=== PATIENT | male | born 1990 | race Native Hawaiian/Other Pacific Islander ===

== ENCOUNTER 2016-04-02 11:43 | Outpatient (CLI) | payer MEDICAID | END 2016-04-02 11:44 | disposition home or self-care (01) | DX: S43.004A Unspecified dislocation of right shoulder joint, initial encounter (principal); S43.491A Other sprain of right shoulder joint, initial encounter; M75.81 Other shoulder lesions, right shoulder; M19.011 Primary osteoarthritis, right shoulder ==

== ENCOUNTER 2016-09-06 10:18 | Day surgery (SDC) | payer OTHER, MEDICAID ==
[~2016-09-06 10:18] MED LIST: ceFAZolin 2 GM/50 ML 50 ML IV ONE
[2016-09-06] MEDS ORDERED: LACTATED RINGERS 1,000 ML IV ONE (10:44)
[2016-09-06] MEDS ORDERED: BUPIVACAINE 0.25%-EPI 1:200000 PF 30 ML VIAL SUBQ ONE ×2 (12:18→13:55)
[2016-09-06] MEDS ORDERED: LIDOCAINE-MPF 2% 5 ML VIAL IM ONE (12:22)
[2016-09-06] MEDS ORDERED: MIDAZOLAM 2 MG/2 ML VIAL IVP ONE (12:22)
[2016-09-06] MEDS ORDERED: ROCURONIUM 50 MG/5 ML VIAL IVP ONE (12:22)
[2016-09-06] MEDS ORDERED: NEOSTIGMINE 1 MG/1 ML 10 ML MDV IVP ONE (12:22)
[2016-09-06] MEDS ORDERED: ONDANSETRON 4 MG/2 ML VIAL IVP ONE (12:22)
[2016-09-06] MEDS ORDERED: DEXAMETHASONE 4 MG/ML VIAL IVP ONE (12:22)
[2016-09-06] MEDS ORDERED: PHENYLEPHRINE 50 MG/5 ML VIAL IV ONE (12:22)
[2016-09-06] MEDS ORDERED: HYDROmorphone 1 MG/ML SYRINGE IVP ONE (12:22)
[2016-09-06] MEDS ORDERED: ACETAMINOPHEN 1,000 MG/100 ML VIAL IV ONE (12:22)
[2016-09-06] MEDS ORDERED: SUCCINYLCHOLINE 200 MG/10 ML VIAL IVP ONE (12:22)
[2016-09-06] MEDS ORDERED: KETOROLAC 30 MG/ML VIAL IVP ONE (12:22)
[2016-09-06] MEDS ORDERED: PROPOFOL 200 MG/20 ML VIAL IVP ONE (12:22)
[2016-09-06] MEDS ORDERED: KETOROLAC 15 MG/ML VIAL ONE (14:54)
[2016-09-06] MEDS ORDERED: oxyCOD/ACETAMIN 5 MG/325 MG TABLET PO ONE (14:55)
[2016-09-06 15:47] VITALS: BP 137/90
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
== END 2016-09-06 10:19 | disposition home or self-care (01) ==
LOC: SDS 10:18
PROVIDERS: ATTEND Orthopaedic Surgery
PROC: 0RCJ4ZZ Extirpation of Matter from Right Shoulder Joint, Percutaneous Endoscopic Approach (ICD-10-PCS; principal; 2016-09-06 11:15)
PROC: 0RQJ0ZZ Repair Right Shoulder Joint, Open Approach (ICD-10-PCS; 2016-09-06 11:15)
DX: M25.311 Other instability, right shoulder (principal); M19.011 Primary osteoarthritis, right shoulder; M24.011 Loose body in right shoulder; F17.210 Nicotine dependence, cigarettes, uncomplicated
CPT/HCPCS: 23466; 29819; A9270; C1713; J0131; J0690; J1170; J7120

== ENCOUNTER 2016-10-06 22:06 | Emergency (ER) | payer MEDICAID ==
[2016-10-06 22:23] VITALS: BP 135/84
[2016-10-06] MEDS ORDERED: IBUPROFEN 600 MG TABLET PO STA (22:38)
--- NOTE | 2016-10-06 22:40 | ED Physician Documentation ---
PD HPI HEENT - Stated complaint Stated Complaint: TOOTH PX - Chief complaint Chief Complaint: Heent - History obtained from History obtained from: Patient - History of Present Illness Timing - onset: How many weeks ago (1) Timing - details: Gradual onset, Still present Location: Tooth Improves: Nothing Worsens: Temperatures Associated symptoms: No: Fever, Congestion, Rhinorrhea, Unable to swallow, Swollen nodes Similar symptoms before: Follow up Recently seen: Not recently seen - Additional information Additional information: Patient is a 25 year old male with no significant past medical history who is presenting to the emergency department for tooth pain. patient states that he has an impacted molar and it was hurting so he wanted to make sure that it wasn' t infected. Review of Systems Constitutional: denies: Fever, Chills Eyes: denies: Decreased vision Ears: denies: Ear pain, Drainage/discharge Nose: denies: Rhinorrhea / runny nose, Congestion, Epistaxis Throat: reports: Dental pain / toothache. denies: Sore throat Cardiac: denies: Chest pain / pressure, Palpitations Respiratory: denies: Cough GI: denies: Nausea, Vomiting Musculoskeletal: reports: Extremity pain, Extremity swelling Neurologic: denies: Generalized weakness, Focal weakness, Headache, Head injury Immunocompromised: denies: Immunocompromised PD PAST MEDICAL HISTORY - Past Medical History Past Medical History: Yes Cardiovascular: None Respiratory: None Neuro: None Endocrine/Autoimmune: None GI: None : Kidney stones HEENT: None Psych: None Musculoskeletal: None Derm: None - Past Surgical History Past Surgical History: Yes Ortho: Shoulder arthroplasty - Present Medications Home Medications: Ambulatory Orders Medication Instructions Recorded Confirmed Chlorhexidine Gluconate 15 ml MM TID #473 ml 10/06/16 oxyCODONE [Roxicodone] 1 tab PO BID 10/06/16 10/06/16 - Allergies Allergies/Adverse Reactions: Allergies Allergy/AdvReac Type Severity Reaction Status Date / Time No Known Drug Allergies Allergy Verified 10/06/16 22:23 - Social History Does the pt smoke?: Yes Smoking Status: Current every day smoker Does the pt drink ETOH?: No Does the pt have substance abuse?: No - Immunizations Immunizations are current?: Yes - POLST Patient has POLST: No PD ED PE NORMAL - Vitals Vital signs reviewed: Yes - General General: Alert and oriented X 3, No acute distress, Well developed/nourished - HEENT HEENT: Atraumatic, PERRL - Neck Neck: Supple, no meningeal sign, No adenopathy - Cardiac Cardiac: RRR, No murmur - Respiratory Respiratory: No respiratory distress - Derm Derm: Normal color, Warm and dry, No rash - Extremities Extremities: No deformity, No tenderness to palpate - Neuro Neuro: Alert and oriented X 3, No motor deficit, No sensory deficit - Psych Psych: Normal mood, Normal affect PD ED PE EXPANDED - HEENT HEENT: Moist mucous membranes, Dental decay (multiple dental caries, no drainable abscess or fluid collection) Results - Vitals Vitals: Vital Signs - 24 hr 10/06/16 22:21 Temperature 36.9 C Heart Rate 91 Respiratory 18 Rate Blood Pressure 135/84 H O2 Saturation 98 Oxygen O2 Source Room air PD MEDICAL DECISION MAKING - ED course Complexity details: reviewed old records, re-evaluated patient, considered differential, d/w patient, d/w family ED course: Patient was seen and examined at bedside. Vital signs were within normal limits. there was no drainable abscess or fluid collection. Patient was treated with motrin for pain and prescriptions were written for antibiotic mouth wash. patient required no further work up and was stable for discharge with outpatient follow up. Departure - Departure Disposition: 01 Home, Self Care Clinical Impression: Pain due to dental caries Condition: Good Instructions: ED Tooth Pain Follow-Up: primary,dentist [Other] - Within 1 week Prescriptions: Chlorhexidine Gluconate 15 ml MM TID #473 ml Comments: there is no abscess or fluid collection, so no indication for oral antibiotics. We will have you start an antibiotic mouth rinse that you should use three times a day. You can take motrin or tylenol as needed for pain. Ultimately the only way to solve the problem is to follow up with your dentist.
[2016-10-06] MEDS ORDERED: IBUPROFEN 600 MG TABLET PO ONE (22:44)
== END 2016-10-06 22:57 | disposition home or self-care (01) ==
LOC: ED 22:06
DX: K08.89 Other specified disorders of teeth and supporting structures (principal); K02.9 Dental caries, unspecified; F17.200 Nicotine dependence, unspecified, uncomplicated
CPT/HCPCS: 99283; A9270

== ENCOUNTER 2016-11-24 11:09 | Emergency (ER) | payer MEDICAID ==
--- NOTE | 2016-11-24 13:07 | ED Physician Documentation ---
History of Present Illness - Stated complaint Stated Complaint: DIZZY - Chief complaint Chief Complaint: General - History obtained from History obtained from: Patient - History of Present Illness Timing: Yesterday (This is a previously healthy 25-year-old gentleman with resolving cough and cold symptoms for the last week and half, since yesterday he does like he is spinning especially when he turns his head rapidly. When he is looking straight it goes away. There is some mild left occipital headache with that, no fevers or double vision. He has never had this before.) Review of Systems Constitutional: denies: Fever, Chills Eyes: denies: Loss of vision, Decreased vision, Photophobia Ears: reports: Tinnitus/ringing. denies: Loss of hearing, Ear pain, Drainage/ discharge Nose: denies: Rhinorrhea / runny nose, Congestion Throat: denies: Dental pain / toothache, Sore throat Cardiac: denies: Chest pain / pressure, Palpitations PD PAST MEDICAL HISTORY - Past Medical History Cardiovascular: None Respiratory: None Neuro: None Endocrine/Autoimmune: None GI: None : Kidney stones HEENT: None Psych: None Musculoskeletal: None Derm: None - Past Surgical History Past Surgical History: Yes Ortho: Shoulder arthroplasty - Present Medications Home Medications: Ambulatory Orders Medication Instructions Recorded Confirmed Meclizine HCl 1 tab PO Q6H PRN #15 tab.chew 11/24/16 - Allergies Allergies/Adverse Reactions: Allergies Allergy/AdvReac Type Severity Reaction Status Date / Time No Known Drug Allergies Allergy Verified 11/24/16 12:51 - Social History Does the pt smoke?: Yes Smoking Status: Current every day smoker Does the pt drink ETOH?: No Does the pt have substance abuse?: No - Immunizations Immunizations are current?: Yes - POLST Patient has POLST: No PD ED PE NORMAL - Vitals Vital signs reviewed: Yes - General General: Alert and oriented X 3, No acute distress - HEENT HEENT: PERRL, EOMI, Ears normal, Pharynx benign - Neck Neck: Supple, no meningeal sign, No bony TTP - Cardiac Cardiac: RRR, No murmur - Neuro Neuro: Alert and oriented X 3, 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 Departure - Departure Disposition: 01 Home, Self Care Clinical Impression: Peripheral vertigo Qualifiers: Laterality: left Qualified Code(s): H81.392 - Other peripheral vertigo, left ear Condition: Good Record reviewed to determine appropriate education?: Yes Instructions: Vertigo Paroxysmal Positional Prescriptions: Meclizine HCl 1 tab PO Q6H PRN #15 tab.chew PRN Reason: Vertigo Comments: The problem should go away on its own, if it does not I would recommend following up with an ear nose and throat physician, The closest is in [place], call [phone] to schedule an appointment Your blood pressure was elevated today on check into the emergency department. This does not mean that you have hypertension, it is a common phenomenon to come to the emergency department and have elevated blood pressure. I recommend that she see your primary care physician within the week to have it rechecked when you are feeling better.
[2016-11-24 13:15] VITALS: BP 130/88
== END 2016-11-24 13:14 | disposition home or self-care (01) ==
LOC: ED 11:09
DX: H81.392 Other peripheral vertigo, left ear (principal); R03.0 Elevated blood-pressure reading, without diagnosis of hypertension; F17.200 Nicotine dependence, unspecified, uncomplicated
CPT/HCPCS: 99283

== ENCOUNTER 2020-10-12 20:49 | Emergency (ER) | payer MEDICAID ==
--- NOTE | 2020-10-12 22:57 | ED Physician Documentation ---
History of Present Illness - Stated complaint Stated Complaint: LUMP ON HEAD - Chief complaint Chief Complaint: General - History obtained from History obtained from: Patient - Additonal information Additional information: 29-year-old man presents with swelling to mid forehead For the past month, with pain over the past 2 to 3 days after he keeps fingering it. Denies fevers, redness, injury, headache. Review of Systems Constitutional: denies: Fever, Chills Skin: reports: Other (bump) Neurologic: denies: Headache PD PAST MEDICAL HISTORY - Past Medical History Past Medical History: Yes Cardiovascular: None Respiratory: None Endocrine/Autoimmune: None GI: None : Kidney stones HEENT: None Psych: None Musculoskeletal: None Derm: None - Past Surgical History Past Surgical History: Yes Ortho: Shoulder arthroplasty - Present Medications Home Medications: Ambulatory Orders Medication Instructions Recorded Confirmed Amoxicillin 500 mg PO DAILY 10/12/20 10/12/20 - Allergies Allergies/Adverse Reactions: Allergies Allergy/AdvReac Type Severity Reaction Status Date / Time No Known Drug Allergies Allergy Verified 10/12/20 20:52 - Social History Does the pt smoke?: Yes Smoking Status: Current every day smoker Does the pt drink ETOH?: No Does the pt have substance abuse?: No - Immunizations Immunizations are current?: Yes - POLST Patient has POLST: No PD ED PE NORMAL - Vitals Vital signs reviewed: Yes - General General: Alert and oriented X 3, No acute distress, Well developed/nourished - HEENT HEENT: Atraumatic, PERRL, EOMI, Other (2cm mobile soft spherical mass that is nontender located in midforehead) - Neck Neck: Supple, no meningeal sign - Derm Derm: Normal color - Extremities Extremities: No deformity - Neuro Neuro: Alert and oriented X 3 - Psych Psych: Normal mood, Normal affect Results - Vitals Vitals: Vital Signs - 24 hr 10/12/20 20:52 Temperature 36.6 C Heart Rate 120 H Respiratory 16 Rate Blood Pressure 160/90 H O2 Saturation 98 Oxygen O2 Source Room air PD MEDICAL DECISION MAKING - ED course ED course: 29-year-old man presents with lipoma to mid forehead. Advised him to follow-up with dermatology or surgery. Return precautions given. Departure - Departure Disposition: 01 Home, Self Care Clinical Impression: Lipoma Condition: Good Instructions: Lipoma Follow-Up: Collette Pfeiffer MD [Provider Admit Priv/Credential] - Sourav Powell MD [Provider Admit Priv/Credential] - [facility] [Provider Group] Comments: You were seen in the emergency department for a lipoma. You can follow-up with [facility] in [place] to have it removed (probably the best option) or you can go to see one of our general surgeons. It is not cancerous. It does not appear to be infected, but return if it becomes red or if you have fevers. Please also return if you have any other new or worsening symptoms or other concerns.
[2020-10-12 23:05] VITALS: BP 142/97
== END 2020-10-12 23:01 | disposition home or self-care (01) ==
LOC: ED 20:49
DX: D17.0 Benign lipomatous neoplasm of skin and subcutaneous tissue of head, face and neck (principal); F17.200 Nicotine dependence, unspecified, uncomplicated
CPT/HCPCS: 99282

== ENCOUNTER 2021-08-05 08:24 | Emergency (ER) | payer MEDICAID ==
[2021-08-05 08:32] VITALS: BP 141/80
[2021-08-05] MEDS ORDERED: BACITRACIN ZINC OINT 1 PACKET TOP STA (08:49)
[2021-08-05] MEDS ORDERED: cephALEXin 250 MG CAPSULE PO STA (08:49)
--- NOTE | 2021-08-05 08:53 | ED Physician Documentation ---
PD HPI SKIN - Stated complaint Stated Complaint: LUMP ON RT CHEEK - Chief complaint Chief Complaint: Wound - Additional information Additional information: Patient is 30-year-old male with past medical significant for recently identified lipoma on his scalp presenting to the emergency department with swelling and pain associated with his right cheek. Endorses for swelling, purulent malodorous discharge from the area x1-2 days. Denies previous abscesses or soft tissue infections. Denies IVDA. Denies any fever, chills, chest pain, shortness of breath, abdominal pain, nausea, vomiting, diarrhea, constipation. Review of Systems Ten Systems: 10 systems reviewed and negative Constitutional: denies: Fever Cardiac: denies: Chest pain / pressure GI: denies: Abdominal Pain PD PAST MEDICAL HISTORY - Past Medical History Past Medical History: Yes Cardiovascular: None Respiratory: None Endocrine/Autoimmune: None GI: None : Kidney stones HEENT: None Psych: None Musculoskeletal: None Derm: None - Past Surgical History Past Surgical History: Yes Ortho: Shoulder arthroplasty - Present Medications Home Medications: Ambulatory Orders Medication Instructions Recorded Confirmed Bacitracin Zinc Oint 1 applic TOP BID #1 gm 08/05/21 cephALEXin [Keflex] 500 mg PO Q6H #20 cap 08/05/21 - Allergies Allergies/Adverse Reactions: Allergies Allergy/AdvReac Type Severity Reaction Status Date / Time No Known Drug Allergies Allergy Verified 08/05/21 08:32 - Social History Does the pt smoke?: Yes Smoking Status: Current every day smoker Does the pt drink ETOH?: No Does the pt have substance abuse?: No - Immunizations Immunizations are current?: Yes - POLST Patient has POLST: No PD ED PE NORMAL - Vitals Vital signs reviewed: Yes - General General: Alert and oriented X 3, No acute distress - HEENT HEENT: Other (1 cm x 1 cm area of erythema on the right cheek. Mjqfi-gl-fiin ultrasonography demonstrates a very small, 1 x 2 mm fluid collection that is subcutaneous. There appears to be active drainage here in the emergency department.) Results - Vitals Vitals: Vital Signs - 24 hr 08/05/21 08:31 Temperature 35.7 C L Heart Rate 96 Respiratory 16 Rate Blood Pressure 141/80 H O2 Saturation 100 Oxygen O2 Source Room air PD MEDICAL DECISION MAKING - ED course Complexity details: d/w patient ED course: Patient is 30-year-old male presenting to the emergency department with a small area of erythema on his right cheek with active purulent drainage. This is consistent with facial cellulitis. [id number] ultrasonography demonstrated a very small fluid collection less than 2 mm in maximal dimension. Given the size of the fluid collection I do not believe it is amenable to either needle aspiration or incision and drainage at this time. Will initiate course of oral and topical antibiotics for treatment. Additionally patient requested contact information for local area surgical services or dermatology services with whom he can follow for his lipoma. These were provided. Otherwise clear return precautions and follow-up instructions were given prior to discharge. Departure - Departure Disposition: Home, Self Care Clinical Impression: Facial cellulitis Instructions: ED Infec Skin Cellulitis Follow-Up: Chevy Fofana MD [Provider Admit Priv/Credential] - Prescriptions: Bacitracin Zinc Oint 1 applic TOP BID #1 gm cephALEXin [Keflex] 500 mg PO Q6H #20 cap Comments: Thank you for allowing us to care for you today [facility]. Your prescriptions were sent to [facility] Today in the emergency department you are diagnosed with facial cellulitis. This is a soft tissue infection and I would like you to begin a course of oral and topical antibiotics. The ultrasound performed in the emergency department Today did show a small fluid collection however it was less than 2 mm in maximal dimension and fluid collections of the size are not amenable to drainage. However do be aware that if your infection worsens or if this fluid collection becomes larger over the next few days it will be important for you to either follow-up with your primary care doctor or return to the emergency department for reevaluation and possible drainage. For management of your lipoma I recommend follow-up with either [facility] dermatology or you can follow-up directly with [facility] general surgical clinic whose contact information is attached in this discharge packet.
== END 2021-08-05 09:06 | disposition home or self-care (01) ==
LOC: ED 08:24
DX: L03.211 Cellulitis of face (principal); F17.200 Nicotine dependence, unspecified, uncomplicated
CPT/HCPCS: 99282; 99283; A9270

== ENCOUNTER 2021-12-09 11:00 | Day surgery (SDC) | payer MEDICAID ==
[2021-12-09] MEDS ORDERED: LACTATED RINGERS 1,000 ML IV ONE ×2 (11:26→13:37)
--- NOTE | 2021-12-09 11:59 | HISTORY & PHYSICAL EXAMINATION ---
Chief Complaint - Chief Complaint Chief Complaint: growing and now uncomfortable forehead lump History of Present Illness - History Obtained From Records Reviewed: yes History obtained from: pt Exam Limitations: none - History of Present Illness HPI Comment/Other: symptomatic forehead lipoma History - Past Medical History Cardiovascular: reports: None Respiratory: reports: None Endocrine/Autoimmune: reports: None GI: reports: None : reports: Kidney stones HEENT: reports: None Psych: reports: None Musculoskeletal: reports: None Derm: reports: None MRSA Hx?: No - Past Surgical History Ortho: reports: Shoulder arthroplasty - POLST Patient has POLST: No Meds/Allgy - Home Medications Home Medications: Ambulatory Orders Medication Instructions Recorded Confirmed No Known Home Medications 12/08/21 12/08/21 - Allergies Allergies/Adverse Reactions: Allergies Allergy/AdvReac Type Severity Reaction Status Date / Time No Known Drug Allergies Allergy Verified 08/05/21 08:32 Review of Systems - Other Findings Other Findings: 10 pt ros as above otherwise unremarkable Exam - Vital Signs Vital Signs: Vital Signs x48h Temp Pulse Resp BP Pulse Ox 12/09/21 11:05 37 C 90 18 125/80 98 - Physical Exam General Appearance: positive: No acute distress, Alert Eyes Bilateral: positive: PERRL, EOMI ENT: positive: No signs of dehydration Neck: positive: No JVD, Trachea midline Respiratory: positive: No respiratory distress, Breath sounds nml Cardiovascular: positive: Regular rate & rhythm Abdomen: positive: No distention Skin: positive: Other (3 cm mid forehead lipoma) Neurologic/Psychiatric: positive: Oriented x3 Conclusion/Plan - Problem List (1) Lipoma of forehead Conclusion/Plan: plan excision. parq held and consent obtained
--- NOTE | 2021-12-09 12:03 | ANESTHESIA ---
Pre-Anesthesia VS, & Labs - Diagnosis lipoma forehead - Procedure excision of lipoma head Vital Signs: Temp Pulse Resp BP Pulse Ox O2 Flow Rate 37 C 90 18 125/80 98 12/09/21 11:05 12/09/21 11:05 12/09/21 11:05 12/09/21 11:05 12/09/21 11:05 Height: 5 ft 9 in Weight (kg): 121.9 kg Body Mass Index: 39.6 BMI Classification: Obese - NPO >8 hours Home Medications and Allergies Home Medications: Ambulatory Orders No Known Home Medications 12/08/21 No Known Home Medications 12/08/21 Allergies/Adverse Reactions: Allergies Allergy/AdvReac Type Severity Reaction Status Date / Time No Known Drug Allergies Allergy Verified 08/05/21 08:32 Anes History & Medical History - Anesthetic History Anesthesia Complications: reports: No previous complications - Medical History Cardiovascular: reports: None Pulmonary: reports: None Gastrointestinal: reports: None Urinary: reports: Kidney stones Neuro: reports: None Musculoskeletal: reports: None Endocrine/Autoimmune: reports: None Blood Disorders: reports: None Skin: reports: None Smoking Status: Current every day smoker (1/2 pack per day) Psychosocial: reports: No issues indicated History of Cancer?: No - Surgical History Orthopedic: reports: Shoulder arthroplasty Exam General: Alert, Oriented x3, Cooperative, No acute distress Dental: WNL Mouth Openin Fingerbreadth Neck Mobility: Normal Mallampati classification: II Thyromental Distance: 4-6 cm Mental/Cognitive Status: Alert/Oriented X3, Normal for patient Plan Anesthesia Type: General Consent for Procedure(s) Verified and Reviewed: Yes Code Status: Attempt Resuscitation ASA classification: 2-Mild systemic disease Is this case an emergency?: No
[2021-12-09] MEDS ORDERED: ATROPINE ABBOJECT 1 MG/10 ML SYRINGE IVP PRN (12:06)
[2021-12-09] MEDS ORDERED: fentaNYL 100 MCG/2 ML VIAL IVP PRN (12:06)
[2021-12-09] MEDS ORDERED: MORPHINE 2 MG/ML CARPUJECT IVP PRN (12:06)
[2021-12-09] MEDS ORDERED: ONDANSETRON 4 MG/2 ML VIAL IVP PRN (12:06)
[2021-12-09] MEDS ORDERED: HYDROmorphone 0.5 MG/0.5 ML SYRINGE IVP PRN (12:06)
[2021-12-09] MEDS ORDERED: NALOXONE 0.4 MG/ML VIAL IVP PRN (12:06)
[2021-12-09] MEDS ORDERED: PROPOFOL 200 MG/20 ML VIAL IVP ONE (12:24)
[2021-12-09] MEDS ORDERED: MIDAZOLAM 2 MG/2 ML VIAL ONE ×2 (12:25→13:03)
[2021-12-09] MEDS ORDERED: LIDOCAINE MPF 2%-EPI 1:200000 20 ML VIAL ONE (12:38)
[2021-12-09] MEDS ORDERED: BUPIVACAINE 0.25% PF 10 ML VIAL ONE (12:38)
[2021-12-09] MEDS ORDERED: LACTATED RINGERS 1,000 ML IV SCH (13:00)
[2021-12-09] MEDS ORDERED: ONDANSETRON 4 MG/2 ML VIAL ONE (13:09)
[2021-12-09] MEDS ORDERED: DEXAMETHASONE 4 MG/ML VIAL ONE (13:09)
[2021-12-09] MEDS ORDERED: LIDOCAINE MPF 2%-EPI 1:200000 20 ML VIAL SUBQ ONE ×2 (13:13)
[2021-12-09] MEDS ORDERED: BUPIVACAINE 0.25% PF 10 ML VIAL SUBQ ONE ×2 (13:14)
[2021-12-09] MEDS ORDERED: HYDROmorphone 1 MG/ML CARPUJECT ONE (13:18)
[2021-12-09] MEDS ORDERED: HYDROcod/ACETAM 5/325 MG TABLET PO PRN (13:33)
--- NOTE | 2021-12-09 13:53 | ANESTHESIA POST OP EVALUATION ---
Anesthesia Post Eval - Post Anesthesia Eval Vitals: Last Vital Signs Temp 36.4 C L 12/09/21 13:48 Pulse 89 12/09/21 13:48 Resp 18 12/09/21 13:48 BP 145/91 H 12/09/21 13:48 Pulse Ox 99 12/09/21 13:48 O2 Flow Rate CV Function Including HR & BP: Stable Pain Control: Satisfactory Nausea & Vomiting: Negative Mental Status: Baseline Respiratory Status: Airway Patent Hydration Status: Satisfactory Anesthesia Complications: None
--- NOTE | 2021-12-09 13:54 | OPERATIVE REPORT ---
Operative Report - General Procedure Date: 12/09/21 Planned Procedure: excision 3 cm forehead lipoma Pre-Op Diagnosis: forehead lipoma 3 cm Procedure Performed: excision forehead lipoma, subcutaneous 3 cm intermediate repair Post Op Diagnosis: same - Procedure Note Primary Surgeon: noel roblero Anesthesia Technique: General LMA, Local Pathology: benign not sent Estimated Blood Loss (mL): 2 Drain/Tube Type: Other (none) Indications: growing and symptomatic mass Findings: as above Complications: none - Other Other Information/Narrative: The patient was properly identified brought to the operating room and placed in supine position. Laryngeal mask anesthesia was induced. He was placed in modified Fowlers position. He was prepped and draped in a sterile fashion. Antibiotics were not given. Local anesthetic was given. A vertical 3 cm incision was made in the direction of Rafael's lines. The lipoma was removed in its entirety with gentle retraction and cutting current cautery. Hemostasis was assured. Intermediate repair was performed. Buried interrupted subdermal 4-0 Vicryl sutures were placed. Epidermis was closed with a running 5-0 Prolene. Steri-Strips were placed. He tolerated the procedure very well.
[2021-12-09 14:28] VITALS: BP 136/88
== END 2021-12-09 11:01 | disposition home or self-care (01) ==
LOC: SDS 11:00
PROVIDERS: ATTEND Surgery
DX: D17.0 Benign lipomatous neoplasm of skin and subcutaneous tissue of head, face and neck (principal); E66.9 Obesity, unspecified; F17.200 Nicotine dependence, unspecified, uncomplicated; Z68.39 Body mass index [BMI] 39.0-39.9, adult
CPT/HCPCS: 21012; J1170; J7120

== ENCOUNTER 2022-03-24 11:41 | Emergency (ER) | payer MEDICAID ==
[2022-03-24 12:07] VITALS: BP 139/81
--- OUTSIDE RECORDS SUMMARY | 2022-03-24 12:35 | EXTERNAL MEDICAL SUMMARY RPT | Continuity of Care Document ---
:1990 Author Organization [place] Address [address] [place] [address] Phone Care Team Providers Name Role Phone Fly Pamella Degroot Unavailable Unavailable Allergies No information. Encounters No information. Functional Status No information. Immunizations No information. Medications No information. Problems date description facility 2021-12-29 00:00 [facility] 2021-12-29 00:00 [facility] Last 2022-01-06 00:00 Kid[facility] stone [facility] 2022-01-06 00:00 [facility] Procedures No information. Results/Labs No information. Social History No information. Vital Signs No information.
--- NOTE | 2022-03-24 12:49 | ED Physician Documentation ---
PD HPI URI - Stated complaint Stated Complaint: COUGHING UP BLOOD/THROAT PX - Chief complaint Chief Complaint: Heent - History obtained from History obtained from: Patient - Additional information Additional information: Since yesterday has had a severe sore throat associate with coughing and he did note some mild hemoptysis yesterday, sputum mixed with blood. That made him worried about cancer. He recently quit smoking. He is not short of breath. No fevers. Review of Systems Constitutional: denies: Fever, Chills Nose: denies: Rhinorrhea / runny nose Throat: reports: Sore throat Respiratory: reports: Cough. denies: Dyspnea PD PAST MEDICAL HISTORY - Past Medical History Cardiovascular: None Respiratory: None Neuro: None Endocrine/Autoimmune: None GI: None : Kidney stones HEENT: None Psych: None Musculoskeletal: None Derm: None - Past Surgical History Past Surgical History: Yes Ortho: Shoulder arthroplasty - Present Medications Home Medications: Ambulatory Orders Medication Instructions Recorded Confirmed HYDROcod/ACETAM 5/325 [Flint 5/325] 1 each PO Q6H PRN #10 tablet 12/09/21 Penicillin V Potassium 500 mg PO Q6HR #40 tablet 03/24/22 - Allergies Allergies/Adverse Reactions: Allergies Allergy/AdvReac Type Severity Reaction Status Date / Time No Known Drug Allergies Allergy Verified 03/24/22 12:07 - Social History Does the pt smoke?: Yes Smoking Status: Current every day smoker (1/2 pack per day) Does the pt drink ETOH?: No Does the pt have substance abuse?: No - Immunizations Immunizations are current?: Yes - POLST Patient has POLST: No PD ED PE NORMAL - Vitals Vital signs reviewed: Yes - General General: Alert and oriented X 3, No acute distress - HEENT HEENT: Other (Exudative tonsillitis) - Neck Neck: Supple, no meningeal sign, No bony TTP - Cardiac Cardiac: RRR, No murmur - Respiratory Respiratory: No respiratory distress, Clear bilaterally - Abdomen Abdomen: Non tender - Back Back: No CVA TTP, No spinal TTP - Derm Derm: Normal color, Warm and dry - Extremities Extremities: No edema, No calf tenderness / cord Results - Vitals Vitals: Vital Signs - 24 hr 03/24/22 12:04 Temperature 36.7 C Heart Rate 107 H Respiratory 16 Rate Blood Pressure 139/81 H O2 Saturation 97 Oxygen O2 Source Room air PD Medical Decision Making - ED course ED course: PE considered but given that his prominent complaint is sore throat and he has exudative tonsillitis I suspect the hemoptysis is not related to thromboembolic disease. Otherwise it does look like he simply has tonsillitis and is treated with penicillin. Departure - Departure Disposition: Home, Self Care Clinical Impression: Hemoptysis URI (upper respiratory infection) Qualifiers: URI type: unspecified viral URI Qualified Code(s): J06.9 - Acute upper respiratory infection, unspecified Condition: Good Record reviewed to determine appropriate education?: Yes Instructions: ED Tonsillitis Prescriptions: Penicillin V Potassium 500 mg PO Q6HR #40 tablet Comments: Chest x-ray looking normal, no evidence of cancer. Your throat however looks like you have tonsillitis and we are prescribing some penicillin for that. Looking for new or worsening symptoms. Follow-up with your doctor next week if not better. You can take ibuprofen as needed for pain.
--- NOTE | 2022-03-24 13:51 | XRAY Report ---
PROCEDURE: Chest 2 View X-Ray INDICATIONS: cough TECHNIQUE: 2 views of the chest were acquired. COMPARISON: 12/01/2013 FINDINGS: Surgical changes and devices: None. Lungs and pleura: No pleural effusions or pneumothorax. Lungs are clear. Mediastinum: Mediastinal contours are normal. Heart size is normal. Bones and chest wall: No suspicious bony abnormalities. Soft tissues appear unremarkable. IMPRESSION: No acute cardiopulmonary disease. Reviewed by: Isela Gandara MD on 03/24/2022 1:49 PM PST Approved by: Isela Gandara MD on 03/24/2022 1:49 PM PST Station ID: [id number]
== END 2022-03-24 12:55 | disposition home or self-care (01) ==
LOC: ED 11:41
DX: J06.9 Acute upper respiratory infection, unspecified (principal); F17.210 Nicotine dependence, cigarettes, uncomplicated
CPT/HCPCS: 99283

== ENCOUNTER 2022-05-07 15:16 | Outpatient (CLI) | payer MEDICAID ==
[2022-05-07 15:40] LABS: BASOPHILS # (AUTO) 0.1 10^3/uL (0.0-0.1); BASOPHILS % (AUTO) 0.6 %; EOSINOPHILS # (AUTO) 0.3 10^3/uL (0.0-0.7); EOSINOPHILS % (AUTO) 2.9 %; HGB - HEMOGLOBIN 14.5 g/dL (14.0-18.0); LYMPHOCYTES # (AUTO) 2.5 10^3/uL (1.5-3.5); LYMPHOCYTES % (AUTO) 27.7 %; MEAN CORPUSCULAR HEMOGLOBIN 28.6 pg (27.0-31.0); MEAN CORPUSCULAR VOLUME 86.8 fL (80.0-94.0); MEAN PLATELET VOLUME 8.7 fL (7.4-11.4); MONOCYTES # (AUTO) 0.7 10^3/uL (0.0-1.0); MONOCYTES % (AUTO) 7.3 %; NEUTROPHILS # (AUTO) 5.4 10^3/uL (1.5-6.6); NEUTROPHILS % (AUTO) 61.3 %; PLT - PLATELET COUNT 313 10^3/uL (130-450); RED BLOOD COUNT 5.07 10^6/uL (4.70-6.10); RED CELL DISTRIBUTION WIDTH 13.2 % (12.0-15.0); WHITE BLOOD COUNT 8.9 x10^3/uL (4.8-10.8)
[2022-05-07 16:06] LABS: ALBUMIN 4.2 g/dL (3.2-5.5); ALBUMIN/GLOBULIN RATIO 1.1 (1.0-2.2); ALKALINE PHOSPHATASE 127 IU/L (42-121); ALT ALANINE AMINOTRANSFERASE 45 IU/L (10-60); AST ASPARTATE AMINOTRANSFERASE 34 IU/L (10-42); BILIRUBIN,TOTAL 0.7 mg/dL (0.2-1.0); BUN - BLOOD UREA NITROGEN 16 mg/dL (6-20); CALCIUM 9.2 mg/dL (8.5-10.3); CARBON DIOXIDE - CO2 21 mmol/L (21-32); CHLORIDE 103 mmol/L (101-111); CHOLESTEROL 119 mg/dL; CREATININE 0.9 mg/dL (0.6-1.2); GFR - MDRD 98 (>89); GLUCOSE 128 mg/dL (70-100); HDL CHOLESTEROL 40 mg/dL; LDL CHOLESTEROL,CALCULATED 45 mg/dL; LDL/HDL RATIO 1.1 (<3.6); POTASSIUM 3.4 mmol/L (3.5-5.0); SODIUM 137 mmol/L (135-145); TOTAL PROTEIN 7.9 g/dL (6.7-8.2); TRIGLYCERIDES 172 mg/dL; VLDL CHOLESTEROL 34 mg/dL
[2022-05-07 16:13] LABS: THYROID STIMULATING HORMONE 0.87 uIU/mL (0.34-5.60)
[2022-05-07 21:42] LABS: ESTIMATED AVERAGE GLUCOSE 111 mg/dL (70-100); HEMOGLOBIN A1c% 5.5 % (4.27-6.07)
[2022-05-10 00:07] LABS: HIV SCREEN 4TH GENERATION Non Reactive (Non Reactive)
== END 2022-05-07 15:17 | disposition home or self-care (01) ==
LOC: LAB 15:16
PROVIDERS: ATTEND Nurse Practitioner Acute Care
DX: N52.9 Male erectile dysfunction, unspecified (principal); Z13.228 Encounter for screening for other metabolic disorders; Z13.220 Encounter for screening for lipoid disorders; Z13.29 Encounter for screening for other suspected endocrine disorder; Z11.4 Encounter for screening for human immunodeficiency virus [HIV]; Z11.59 Encounter for screening for other viral diseases
CPT/HCPCS: 36415; 80050; 80061; 83036; 83721; 84403; 87389; 87522

== ENCOUNTER 2022-05-10 09:01 | Outpatient (CLI) | payer MEDICAID ==
[2022-05-10 10:11] LABS: FOLLICLE STIMULATING HORMONE 2.88 mIU/mL
[2022-05-10 10:12] LABS: LUTEINIZING HORMONE 2.76 mIU/mL
== END 2022-05-10 09:02 | disposition home or self-care (01) ==
LOC: LAB 09:01
PROVIDERS: ATTEND Nurse Practitioner Acute Care
DX: E29.1 Testicular hypofunction (principal); N52.9 Male erectile dysfunction, unspecified
CPT/HCPCS: 36415; 83001; 83002; 84403

== ENCOUNTER 2022-11-16 22:12 | Emergency (ER) | payer MEDICAID ==
[2022-11-16 23:23] VITALS: O2SAT 100
--- NOTE | 2022-11-16 23:35 | XRAY Report ---
PROCEDURE: Shoulder 3 View RT INDICATIONS: PINCHED SENSATION/TENDERNESS R SHOULDER POST WORK TECHNIQUE: 4 views of the shoulder were acquired. COMPARISON: None. FINDINGS: Bones: No fractures or dislocations. There is slight inferior sloping of the acromion laterally. No suspicious bony lesions. Visualized ribs appear intact. Soft tissues: No suspicious soft tissue calcifications. The visualized lungs are within normal limi ts. IMPRESSION: 1. No acute bony abnormality. 2. Slight inferior sloping of the acromion laterally may be associated with rotator cuff tearing. Fur ther evaluation may be obtained with MRI. Reviewed by: Ori Anne MD on 11/16/2022 11:34 PM PDT Approved by: Ori Anne MD on 11/16/2022 11:34 PM PDT Station ID: [id number]
--- NOTE | 2022-11-17 00:08 | ED Physician Documentation ---
History of Present Illness - Stated complaint Stated Complaint: R SHOULDER PX - Chief complaint Chief Complaint: Ext Problem - History obtained from History obtained from: Patient - Additonal information Additional information: 31yM presents to the ED with R shoulder pain after a heavy workout 4 days ago. patient has been continuing to work out but avoiding "arms day". denies numbness/weakness. normal ROM. he did have prior rotator cuff surgery on that shoulder. PD PAST MEDICAL HISTORY - Past Medical History Cardiovascular: None Respiratory: None Neuro: None Endocrine/Autoimmune: None GI: None : Kidney stones HEENT: None Psych: None Musculoskeletal: None Derm: None - Past Surgical History Past Surgical History: Yes Ortho: Shoulder arthroplasty - Present Medications Home Medications: Ambulatory Orders Medication Instructions Recorded Confirmed No Known Home Medications 11/16/22 11/16/22 - Allergies Allergies/Adverse Reactions: Allergies Allergy/AdvReac Type Severity Reaction Status Date / Time No Known Drug Allergies Allergy Verified 11/16/22 22:22 - Social History Does the pt smoke?: Yes Smoking Status: Current every day smoker (1/2 pack per day) Does the pt drink ETOH?: No Does the pt have substance abuse?: No - Immunizations Immunizations are current?: Yes - POLST Patient has POLST: No PD ED PE NORMAL - Vitals Vital signs reviewed: Yes - General General: Alert and oriented X 3, No acute distress, Well developed/nourished - HEENT HEENT: Atraumatic, PERRL, EOMI - Neck Neck: Supple, no meningeal sign - Derm Derm: Normal color, Warm and dry - Extremities Extremities: Normal ROM s pain (R shoulder with normal ROM. normal ROM R elbow. no bony ttp. 2+ radial pulse. normal sensation and strength) Results - Vitals Vitals: Vital Signs - 24 hr 11/16/22 11/16/22 22:15 23:19 Temperature 37.0 C 37 C Heart Rate 91 83 Respiratory 18 20 Rate Blood Pressure 167/98 H 121/72 O2 Saturation 99 100 Oxygen O2 Source Room air PD Medical Decision Making - ED course ED course: 31yM with hx rotator Had surgery to the right shoulder presents with right shoulder pain after workout on Monday. Shoulder exam is completely benign and he has full range of motion without pain. X-rays without acute fracture or dislocation. I advised him that he would benefit from follow-up MRI if there is concern for muscle, tendon, or ligament injury but given his benign exam he can just rest it, take ibuprofen as needed on a full stomach, and monitor and follow-up with his primary care provider. Orthopedics referral provided. Return precautions given. Symptomatic care discussed. Departure - Departure Disposition: 01 Home, Self Care Clinical Impression: Shoulder pain Condition: Good Instructions: ED RICE Follow-Up: Armando Blake MD [Provider Admit Priv/Credential] - Comments: You were seen in the emergency department for soreness in the shoulder. Your xray uncovered no breaks or dislocations but if you have a torn muscle, ligament or tendon an MRI would be able to show this better. I am enclosing a referral to orthopedics in case this does not resolve after you rest the shoulder for a week. Please follow-up with your primary care provider as well and return to the emergency department if you have any new or worsening symptoms or other concerns. Forms: PCP List
[2022-11-17 00:19] VITALS: BP 130/74
== END 2022-11-17 00:10 | disposition home or self-care (01) ==
LOC: ED 22:12
DX: M25.511 Pain in right shoulder (principal); F17.210 Nicotine dependence, cigarettes, uncomplicated
CPT/HCPCS: 99283

== ENCOUNTER 2022-11-22 08:00 | Outpatient (CLI) | payer MEDICAID ==
--- NOTE | 2022-11-22 13:00 | XRAY Report ---
PROCEDURE: Shoulder 1 View RT INDICATIONS: RIGHT SHOULDER PAIN TECHNIQUE: 1 views of the shoulder were acquired. COMPARISON: X-ray shoulder 11/16/2022 FINDINGS: Bones: No fractures or dislocations. No suspicious bony lesions. Visualized ribs appear intact. Soft tissues: No suspicious soft tissue calcifications. The visualized lungs are within normal limi ts. IMPRESSION: No visualized acute fracture or dislocation. However, occult injury cannot be excluded. Recommend omero rt interval imaging follow-up in 7-10 days as clinically indicated for additional evaluation. Reviewed by: Sita Hickey MD on 11/22/2022 12:58 PM PDT Approved by: Sita Hickey MD on 11/22/2022 12:58 PM PDT Station ID: [id number]
== END 2022-11-22 23:59 | disposition home or self-care (01) ==
LOC: DI.WOS 08:00
PROVIDERS: ATTEND Physician Assistant Surgical
DX: M25.511 Pain in right shoulder (principal)